=== PATIENT | male | born 1975 | race Caucasian/White ===

== ENCOUNTER → 2021-05-10 16:51 | Outpatient (CLI) | payer OTHER, SELFPAY ==
--- NOTE | ~2021-05-10 | XR_ITS ---
EXAMINATION: XR chest 2V DATE: 05/10/2021 17:10 INDICATION: Cough TECHNIQUE: frontal and lateral views of the chest were obtained. COMPARISON: Chest radiograph dated 05/23/2016 FINDINGS: The lungs remain clear with no focal airspace opacities, pulmonary edema, pleural effusion or pneumot horax. The cardiomediastinal silhouette is normal. Mild thoracic spondylosis with chronic mild anteri or wedging of a few mid thoracic vertebral bodies. IMPRESSION: 1. No acute cardiopulmonary disease. Reviewed, dictated and finalized at location B.
== END ==
DX: R05.9 Cough, unspecified (principal)
CPT/HCPCS: 71046

== ENCOUNTER 2021-06-05 16:47 | Emergency (ER) | payer OTHER, SELFPAY ==
[2021-06-05 16:52] VITALS: BP 126/74; PULSE 70; RESP 16; TEMP 36.6; O2SAT 100
[2021-06-05 16:55] VITALS: BP 126/74; PULSE 70; RESP 16; TEMP 36.6; O2SAT 100
--- NOTE | 2021-06-05 17:20 | ED.DENTAL ---
HPI - Dental/Oral General Chief complaint: Dental/Oral Stated complaint: gum pain Time Seen by Provider: 06/05/21 17:03 Source: patient and RN notes reviewed Mode of arrival: ambulatory Limitations: no limitations History of Present Illness HPI Narrative: Patient presents today complaining of upper gum pain x3 to 4 days with swelling that started today. Patient recently had a cracked tooth that fell out and has not been able to see his dentist. Currently rates his pain 5/10 after taking some ibuprofen this afternoon. Denies shortness of breath, difficulty swallowing, fever. Related Data Home Medications Medication Instructions Recorded Confirmed [id number] INHALATION 06/05/21 [Trelegy Ellipta] Allergies Allergy/AdvReac Type Severity Reaction Status Date / Time No Known Allergies Allergy Mild Verified 09/22/07 05:06 Review of Systems Review of Systems: CONSTITUTIONAL: Denies body aches, fever, chills, or sweats. EYES: Denies visual changes, redness, or discharge. ENT: Denies rhinorrhea, congestion, sore throat, or otalgia.+ Gum pain and swelling CARDIOVASCULAR: Denies chest pain, palpitations, or edema. RESPIRATORY: Denies cough or dyspnea. GASTROINTESTINAL: Denies abdominal pain, nausea, vomiting, or diarrhea. GENITOURINARY: Denies dysuria or hematuria. SKIN: Denies rash, itching, or wounds. MUSCULOSKELETAL: Denies back pain, joint pain, or myalgia. NEUROLOGIC: Denies headache, numbness, tingling, or weakness. PSYCH: Denies depression or anxiety. PMFSH Comments At time of signature, I have reviewed and agree with nursing past medical, surgical, social and family history unless otherwise noted. Please see nursing chart for further information. There is no relevant family history pertinent to the presenting complaint Exam Narrative: GENERAL: Well-appearing, well-nourished, and in no acute distress. HEAD: Normocephalic, atraumatic. EYES: EOMI. No redness or drainage. Conjunctivae normal. ENT: Mucous membranes pink and moist. Throat normal. Uvula midline. 0.5 cm periapical abscess adjacent to tooth #7. White in color and very superficial. Swelling of the right upper jawline NECK: Normal AROM. Supple. No lymphadenopathy. CHEST: No respiratory distress. EXTREMITIES: Normal range of motion. No edema. SKIN: Warm, dry, no rash. Capillary refill normal. Normal skin turgor. NEURO: No focal deficits. Alert and oriented x3. Gait steady. PSYCH: Normal affect. No signs of depression or anxiety. Course Vital Signs Vital signs: Vital Signs Temperature 97.8 F 06/05/21 16:52 Pulse Rate 70 06/05/21 16:52 Respiratory Rate 16 06/05/21 16:52 Blood Pressure 126/74 06/05/21 16:52 Pulse Oximetry 100 06/05/21 16:52 Temperature 97.8 F 06/05/21 16:55 Pulse Rate 70 06/05/21 16:55 Respiratory Rate 16 06/05/21 16:55 Blood Pressure 126/74 06/05/21 16:55 Pulse Oximetry 100 06/05/21 16:55 Reviewed. Pt has been instructed to follow up with his PCP regarding his elevated blood pressure today. Procedures Abscess I/D periapical: Date of Incision: 06/05/21 Time of Incision: 17:21 Local Anesthetic: none Technique: other (27g needle) Amount of fluid expressed (mL): 1 Irrigation: No Packing used?: none I&D Results: Pus MDM - Dental/Oral Differential Diagnosis Differential diagnosis: Likely gingival abscess, dental caries, toothache, dental abscess and fracture of tooth Critical Care Time Critical Care Time Critical Care Time: No Discharge Plan Discharge Clinical Impression: Dental abscess Patient Disposition: Home, Self-Care Condition: Stable Instructions: Antibiotic Form, Dental Abscess (ED) Additional Instructions: Please take the clindamycin as prescribed until gone. Take Tylenol or ibuprofen at home for pain. Follow-up with a dentist as soon as possible for further evaluation and treatment.
== END 2021-06-05 17:28 | disposition home or self-care (01) ==
PROVIDERS: Emergency Provider Nurse Practitioner; PCP Internal Medicine
DX: K04.7 Periapical abscess without sinus (principal)
CPT/HCPCS: 41800; 99213; G0463

== ENCOUNTER 2023-11-01 11:16 | Outpatient (CLI) | payer OTHER, SELFPAY ==
[2023-11-01 12:17] LABS: Basophils Absolute Auto 0.1 K/mm3 (0.0-0.1); Basophils Percent Auto 1.3 % (0.2-1.2); Eosinophils Absolute Auto 0.2 K/mm3 (0-0.3); Eosinophils Percent Auto 3.8 % (0-4.4); Hematocrit 43.6 % (42.0-52.0); Hemoglobin 14.1 g/dL (14.0-18.0); Immature Granulocyte Absolute 0.01 K/mm3 (0.00-0.031); Immature Granulocyte Percent A 0.2 % (0-0.5); Lymphocytes Absolute Auto 1.29 K/mm3 (0.9-3.2); Lymphocytes Percent Auto 24.7 % (18.3-44.2); Mean Corpuscular HGB Conc 32.3 g/dl (32-36); Mean Corpuscular Hemoglobin 30.1 pg (26-34); Monocytes Absolute Auto 0.5 K/mm3 (0.1-0.6); Monocytes Percent Auto 10.2 % (2.6-8.5); Neutrophils Absolute Auto 3.1 K/mm3 (1.3-6.7); Neutrophils Percent Auto 59.8 % (45.5-73.1); Platelet Count Result 343 k/mm3 (150-375); Red Blood Count 4.69 M/mm3 (4.6-6.20); Red Cell Distribution Width 13.1 % (11.5-14.5); White Blood Count 5.2 K/mm3 (4.5-10.0)
[2023-11-01 12:25] LABS: Alanine Aminotransferase 54 U/L (6-50); Albumin Level 4.2 g/dL (3.5-5.1); Alkaline Phosphatase 58 U/L (38-126); Anion Gap 4 mmol/L (4-12); Aspartate Amino Transferase 41 U/L (17-59); Bilirubin,Total 0.9 mg/dL (0.2-1.3); Blood Urea Nitrogen 9 mg/dL (9-20); Calcium 9.3 mg/dL (8.4-10.2); Carbon Dioxide 28 mmol/L (22-30); Chloride 103 mmol/L (98-107); Cholesterol 147 mg/dL (0-200); Estimated Glomerular Filt Rate > 60; Glucose 95 mg/dL (65-110); HDL Direct 43 mg/dL; Potassium 4.1 mmol/L (3.4-5.0); Sodium 135 mmol/L (137-145); Triglycerides 68 mg/dL (<150)
[2023-11-01 12:36] LABS: LDL Cholesterol Direct 82 mg/dL
[2023-11-01 12:55] LABS: Vitamin D 25 Hydroxy 40.8 ng/mL
[2023-11-01 13:09] LABS: Thyroid Stimulating Hormone Reflex 0.782 uIU/mL (0.465-4.68)
[2023-11-04 22:45] LABS: Homocysteine 15.9 umol/L (<11.4)
[2023-11-05 22:16] LABS: Apolipoprotein B 64 mg/dL (<90)
[2023-11-07 12:42] LABS: Lipoprotein A 16 nmol/L (<75)
== END 2023-11-01 11:17 | disposition home or self-care (01) ==
LOC: ANHGOSHLAB 11:17
PROVIDERS: PCP Family Medicine; Visit Provider Family Medicine
DX: Z13.220 Encounter for screening for lipoid disorders (principal); Z13.29 Encounter for screening for other suspected endocrine disorder; E55.9 Vitamin D deficiency, unspecified; Z13.228 Encounter for screening for other metabolic disorders; R53.83 Other fatigue; Z82.49 Family history of ischemic heart disease and other diseases of the circulatory system
CPT/HCPCS: 36415; 80053; 80061; 82172; 82306; 83090; 83695; 84443; 85025